=== PATIENT | female | born 2000 | race Two or more races ===

== ENCOUNTER 2023-02-22 09:55 | Outpatient (AMB) | payer OTHER, SELFPAY ==
--- NOTE | 2023-02-22 10:19 | AM.OFFWIN_ITS ---
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 Patient Tobacco Use Status: Never used Tobacco Allergies No Known Allergies Allergy (Verified 02/22/23 10:22) Do you need a note to return to daycare/school/sports/work: No HPI HPI Comments History of Present Illness Details This is a 22-year-old male presents to the office today with complaints of dysuria and vaginal discharge. The patient states she started to developed burning before and after she urinates as well as in thick/creamy white vaginal discharge. Patient denies any fevers or chills. Patient states she started [id number] Monistat she has been taking an oral antibiotic, furazidine (from [employer]), which is a nitrofuran derivative. Patient is currently visiting from [place] she has not been sexually active for the past 1 and half months. She states she has a boyfriend in [place] and has been monogamous for the past 1 year. However, patient requesting STD testing. [facility] Social History Patient Tobacco Use Status: Never used Tobacco Review of Systems Const All systems reviewed & are unremarkable except as noted in HPI and below Denies chills and Denies fever(s) ENT Reports no additional complaints Card Reports no additional complaints Resp Reports no additional complaints GI Reports no additional complaints Denies hematuria, Reports dysuria, Reports vaginal discharge and Reports vaginal pruritus Musc Reports no additional complaints Skin/Breast Reports system reviewed and no additional complaints, except as documented Neuro Reports no additional complaints Psych Reports no additional complaints Physical Exam Vital Signs: Last Vital Signs Temp 98.4 F 02/22/23 10:22 Pulse 70 02/22/23 10:22 BP 110/70 02/22/23 10:22 Pulse Ox 99 02/22/23 10:22 Oxygen Delivery Method Room Air 02/22/23 10:22 Const General: cooperative and healthy appearing Orientation/consciousness: patient oriented x3 HEENT Head: Yes normal to inspection Ears: hearing grossly normal bilaterally General nose exam: Normal external nose present Resp Effort & Inspection: normal respiratory effort Auscultation: clear to auscultation bilaterally Cardio Rate: regular rate Rhythm: regular rhythm Heart sounds: no gallops, no murmurs and no rubs GI Inspection: Yes normal to inspection and No distended Palpation (GI): Soft to palpation and nontender Auscultation: normal bowel sounds Skin General skin exam: no rashes or lesions noted Lesions: no lesions Rashes: no rashes Neuro General: patient oriented x3 Cranial nerves: Yes CN's II-XII intact bilaterally Cognition (Neuro): normal cognition Motor exam (neuro): 5/5 motor strength present throughout Results AMB Urinalysis, Automated UA Leukoctes 0 Edie/uL Last Edit by Placido German [facility] on 02/22/23 10:43 UA Nitrite Negative Last Edit by Placido German [facility] on 02/22/23 10:43 UA Urobilinogen 0.2 mg/dL Last Edit by Placido German [facility] on 02/22/23 10:43 UA Protein 0 mg/dL Last Edit by Placido German [facility] on 02/22/23 10:43 UA pH 7.0 Last Edit by Placido German [facility] on 02/22/23 10:43 UA Blood 0 Jeff/uL Last Edit by Placido German [facility] on 02/22/23 10:43 UA Specific [place] 1.005 Last Edit by Placido German [facility] on 02/22/23 10:43 UA Ketone Negative Last Edit by Placido German [facility] on 02/22/23 10:43 UA Bilirubin 0 mg/dL Last Edit by Placido German [facility] on 02/22/23 10:43 UA Glucose 0 mg/dL Last Edit by Placido German [facility] on 02/22/23 10:43 Results Reviewed Results Reviewed: Laboratory Last Values Urine pH (Auto) 7.0 02/22/23 10:41 Specific [place] (Auto) 1.005 02/22/23 10:41 Urine Protein (Auto) 0 mg/dL 02/22/23 10:41 Glucose (UA)(Auto) 0 mg/dL 02/22/23 10:41 Urine Ketones (Auto) Negative 02/22/23 10:41 Urine Blood (Auto) 0 Jeff/uL 02/22/23 10:41 Urine Nitrite (Auto) Negative 02/22/23 10:41 Urine Bilirubin (Auto) 0 mg/dL 02/22/23 10:41 Urine Urobilinogen (Auto) 0.2 mg/dL 02/22/23 10:41 Leukocyte Esterase (Auto) 0 Edie/uL 02/22/23 10:41 Assessment & Plan Assessment & Plan (1) UTI (urinary tract infection): Code(s): N39.0 - Urinary tract infection, site not specified (2) Vaginal candidiasis: Code(s): B37.31 - Acute candidiasis of vulva and vagina Plan This is a 22-year-old female presenting with dysuria, urinary frequency, and white thick/creamy vaginal discharge. Patient has signs and symptoms are most consistent with an acute urinary tract infection as well as vaginal candidiasis. Her urine dipstick as negative, but patient has already been taking oral antibiotics, so this is low yield. Patient was instructed to complete the full course of antibiotics for treatment of urinary tract infection. Patient was also given a prescription for p.o. fluconazole 150 mg x 1 dose with repeat dose in 72 hours if symptoms persist. Patient also requesting testing for STDs though she states she has been monogamous with her boyfriend for the past 1 year and has not been sexually active for the past 1 and half months as she is visiting from [place]. Patient advised to follow-up here or the emergency room for worsening/persistent symptoms were she were to develop fever/chills, back pain, or signs of systemic infection. Orders: Orders CT NG by PCR Today N89.8 - Other specified noninflammatory disorders of vagina AMB Urinalysis Automated Today Z13.9 - Encounter for screening, unspecified Medications: New fluconazole Take 1 tablet today. If symptoms persist, repeat dose in 72 hours. 150 mg PO Q3D 2 tabs 0RF phenazopyridine (Pyridium) 100 mg PO TID PRN 7 tabs 0RF pain Coding Level of Care Code New Pt Level 3 (31779) Diagnoses UTI (urinary tract infection) N39.0 Vaginal candidiasis B37.31
[2023-02-22 10:22] VITALS: BP 110/70; PULSE 70; TEMP 36.9; O2SAT 99
== END 2023-02-22 11:35 | disposition home or self-care (01) ==
PROVIDERS: Visit Provider Physician Assistant Medical
DX: N39.0 Urinary tract infection, site not specified (principal); B37.31 Acute candidiasis of vulva and vagina
CPT/HCPCS: 81003; 99203

== ENCOUNTER 2023-02-22 10:53 | Outpatient (REF) | payer OTHER, SELFPAY ==
[2023-02-22 16:33] LABS: CT PCR NOT DETECTED (Not Detect.); NG PCR NOT DETECTED (Not Detect.)
== END 2023-02-22 10:54 | disposition home or self-care (01) ==
LOC: HO.LAB 10:53
PROVIDERS: Visit Provider Physician Assistant Medical
DX: N89.8 Other specified noninflammatory disorders of vagina (principal)
CPT/HCPCS: 0353U